=== PATIENT | male | born 1960 | race Caucasian/White ===

== ENCOUNTER → 2025-06-09 | Outpatient (CLI) | payer OTHER, SELFPAY ==
--- NOTE | 2025-06-09 11:47 | EKG12_ITS ---
Test Reason : PREOP Blood Pressure : */* mmHG Vent. Rate : 64 BPM Atrial Rate : 64 BPM P-R Int : 216 ms QRS Dur : 108 ms QT Int : 392 ms P-R-T Axes : 15 -14 42 degrees QTcB Int : 404 ms Sinus rhythm with 1st degree A-V block Nonspecific T wave abnormality Abnormal ECG Confirmed by CEZAR PETERSON, DUKE ([id number]), purchasing expeditor DENEEN OCHOA ([id number]) on 06/10/2025 6:28:33 AM Referred By: Bailey Miller Confirmed By: DUKE ROBB MD
== END | disposition home or self-care (01) ==
LOC: PSN 11:38
PROVIDERS: Referring Provider Physician Assistant; Visit Provider Physician Assistant
DX: Z01.810 Encounter for preprocedural cardiovascular examination (principal)
CPT/HCPCS: 93005